=== PATIENT | female | born 1995 | race American Indian/Alaskan Native ===

== ENCOUNTER 2017-10-17 14:47 | Emergency (ER) | payer SELFPAY ==
[2017-10-17 15:56] VITALS: BP 134/86
== END 2017-10-17 17:00 | disposition left against medical advice (07) ==
LOC: ED 14:47
DX: J02.9 Acute pharyngitis, unspecified (principal); Z53.21 Procedure and treatment not carried out due to patient leaving prior to being seen by health care provider

== ENCOUNTER 2018-07-19 07:58 | Emergency (ER) | payer OTHER ==
[2018-07-19] MEDS ORDERED: FLEXERIL PO ONE (08:26)
[2018-07-19] MEDS ORDERED: NORCO 5/325 PO ONE (08:26)
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
[2018-07-19] MEDS ORDERED: DELTASONE PO NR (09:00)
[2018-07-19 09:04] VITALS: BP 140/76
== END 2018-07-19 09:23 | disposition home or self-care (01) ==
LOC: ED 07:58
DX: M79.18 Myalgia, other site (principal); V49.49XA Driver injured in collision with other motor vehicles in traffic accident, initial encounter; Y93.89 Activity, other specified; Y92.89 Other specified places as the place of occurrence of the external cause; Y99.8 Other external cause status